=== PATIENT | female | born 1935 | race Caucasian/White ===

== ENCOUNTER 2019-02-23 15:09 | Emergency (ER) | payer OTHER ==
[2019-02-23 15:27] LABS: ADD MAN DIFF? NO
[2019-02-23 15:34] LABS: WHITE BLOOD COUNT 3.8 10^3/ul (4.8-10.8)
[2019-02-23 15:34] LABS: ABNORMAL IP MESSAGE 1; BASOPHILS % 0.3 % (0.0-2.0); HEMATOCRIT 41.5 % (37.0-47.0); HEMOGLOBIN 13.5 g/dl (12.0-16.0); LYMPHOCYTES # 0.4 10^3/ul (0.8-2.9); LYMPHOCYTES % 10.2 % (15.0-51.0); MEAN CORPUSCULAR HEMOGLOBIN 29.8 pg (29.0-33.0); MEAN CORPUSCULAR HGB CONC 32.5 g/dl (32.0-37.0); MEAN CORPUSCULAR VOLUME 91.6 fl (82.0-101.0); MEAN PLATELET VOLUME 9.7 fl (7.4-10.4); MONOCYTE # 0.1 10^3/ul (0.3-0.9); MONOCYTES % 3.4 % (0.0-11.0); NEUTROPHIL # 3.3 10^3/ul (1.6-7.5); NEUTROPHILS % 85.6 % (39.0-77.0); PLATELET COUNT 133 10^3/UL (140-415); RED BLOOD COUNT 4.53 10^6/ul (4.20-5.40); RED CELL DISTRIBUTION WIDTH 16.5 % (11.5-14.5)
[2019-02-23 15:41] LABS: POSITIVE DIFF @See below
[2019-02-23 16:01] LABS: ALANINE AMINOTRANSFERASE 262 IU/L (13-69); ALBUMIN 4.2 g/dl (3.3-4.9); ALBUMIN/GLOBULIN RATIO 1.23; ALKALINE PHOSPHATASE 729 IU/L (42-121); ANION GAP 10 (5-13); ASPARTATE AMINO TRANSFERASE 429 IU/L (15-46); BILIRUBIN,INDIRECT 0.5 mg/dl (0-1.1); BILIRUBIN,TOTAL 0.5 mg/dl (0.2-1.3); BLOOD UREA NITROGEN 34 mg/dl (7-20); CALCIUM 10.1 mg/dl (8.4-10.2); CARBON DIOXIDE 28 mmol/L (21-31); CHLORIDE 106 mmol/L (97-110); GLUCOSE 281 mg/dl (70-220); POTASSIUM 4.6 mmol/L (3.5-5.1); SODIUM 144 mmol/L (135-144); TOTAL PROTEIN 7.6 g/dl (6.1-8.1)
[2019-02-23] MEDS: VANCOMYCIN 1 GM (PMX) 250 ML IVPB (16:01)
[2019-02-23] MEDS: SODIUM CHLORIDE 0.9% 1L BAG IV* (16:01)
[2019-02-23] MEDS: CEFEPIME 2GM/50 ML (PMX) 50 ML IVPB (16:01)
[2019-02-23] MEDS: ACETAMINOPHEN 325 MG TAB PO (16:02)
[2019-02-23 16:11] LABS: INR 0.93; PROTIME 12.6 Sec (11.9-14.9); TROPONIN-I < 0.012 ng/ml (0.000-0.120)
[2019-02-23 16:12] LABS: PARTIAL THROMBOPLASTIN TIME 28.2 Sec (23.0-35.0)
[2019-02-23 17:44] LABS: ADD UMIC NO; UR ASCORBIC ACID NEGATIVE (NEGATIVE); UR BILIRUBIN (Dip) NEGATIVE (NEGATIVE); UR BLOOD (Dip) NEGATIVE (NEGATIVE); UR CLARITY CLEAR (CLEAR); UR COLOR YELLOW (YELLOW); UR GLUCOSE (Dip) 2+ mg/dL (NEGATIVE); UR KETONES (Dip) NEGATIVE (NEGATIVE); UR LEUKOCYTE ESTERASE (Dip) NEGATIVE Leu/ul (NEGATIVE); UR NITRITE (Dip) NEGATIVE (NEGATIVE); UR SPECIFIC GRAVITY (Dip) 1.017 (1.003-1.030); UR TOTAL PROTEIN (Dip) NEGATIVE (NEGATIVE); UR UROBILINOGEN (Dip) NEGATIVE (NEGATIVE)
== END 2019-02-23 19:20 | disposition short-term general hospital (02) ==
LOC: E/R 15:09
DX: A41.9 Sepsis, unspecified organism (principal); C79.9 Secondary malignant neoplasm of unspecified site; R06.02 Shortness of breath
CPT/HCPCS: 36415; 71045; 76705; 80053; 81003; 83605; 84484; 85025; 85610; 85730; 87040-91; 87086; 93005; 96374; 96375; 99285-25